=== PATIENT | male | born 2005 | race African-American/Black ===

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

== ENCOUNTER 2023-01-12 12:48 | Emergency (ER) | payer OTHER, MEDICARE ==
[~2023-01-12] VITALS: Ht 172.7 cm; Wt 82.0 kg
[2023-01-12 13:13] VITALS: BP 129/81; TEMP 98.6; O2SAT 98
[2023-01-12 13:20] VITALS: PULSE 88; RESP 20
== END 2023-01-12 16:17 | disposition home or self-care (01) ==
LOC: ER 13:32
DX: Z00.00 Encounter for general adult medical examination without abnormal findings (principal); F12.10 Cannabis abuse, uncomplicated; F15.10 Other stimulant abuse, uncomplicated
CPT/HCPCS: 99281